=== PATIENT | female | born 1995 | race Two or more races ===

== ENCOUNTER 2016-03-09 13:04 | Emergency (ER) | payer OTHER ==
--- NOTE | 2016-03-09 13:34 | RAD ---
Exam: Two-view chest COMPARISON: None INDICATION: Cough. FINDINGS: PA and lateral views of the chest were obtained. Cardiac silhouette is within normal limits. Lungs are well-inflated. There is no focal airspace disease or pleural effusion. Bones of the chest wall within normal limits. IMPRESSION: Negative two-view chest.
== END 2016-03-09 13:58 | disposition home or self-care (01) ==
LOC: ED 13:04
DX: J09.X2 Influenza due to identified novel influenza A virus with other respiratory manifestations (principal); R05 Cough